=== PATIENT | male | born 1965 | race Caucasian/White ===

== ENCOUNTER 2016-08-20 21:32 | Emergency (ER) | payer MEDICAID, OTHER ==
[~2016-08-20] VITALS: Ht 162.6 cm; Wt 71.0 kg
[2016-08-20 21:42] VITALS: Ht 162.6 cm; Wt 71.0 kg
[2016-08-20] MEDS ORDERED: DIPHTH/TET/ACEL PERTUSS (ADULT) 0.5 ML VIAL IM* ONE (22:30)
--- NOTE | 2016-08-20 22:35 | ERD ---
ER Documentation Chief Complaint Date/Time DATE: 08/20/16 TIME: 22:31 Chief Complaint Pt with L hand lac after cut by hand saw. HPI 51-year-old male was sent here in emergency department for complaints of left third finger pain and laceration wound accidentally being cut by of wood saw. Complaining of pain on affected area, throbbing pain, 8/10 scale, is worse upon touching the area. Patient denies any limitation of movement of the joint. Patient did not take any medications to help with symptoms. ROS All systems reviewed and are negative except as per history of present illness. Medications Home Meds Reported Medications [none] Unknown Strength No Conflict Check 08/20/16 Allergies Allergies: Coded Allergies: No Known Allergy (Unverified , 08/20/16) PMhx/Soc Hx Cardiac Disorders: Yes (htn) Hx Alcohol Use: Yes (occassional) Hx Substance Use: No Hx Tobacco Use: No Smoking Status: Never smoker FmHx Family History: No coronary disease, No diabetes, No other Physical Exam Vitals Vital Signs Date Time Temp Pulse Resp B/P Pulse Ox O2 Delivery O2 Flow Rate FiO2 08/20/16 21:42 97.9 67 16 130/75 99 Physical Exam GENERAL: The patient is well developed and appropriate for usual state of health, in no apparent distress. CHEST: Clear to auscultation bilaterally. There are no rales, wheezes or rhonchi. HEART: Regular rate and rhythm. No murmurs, clicks, rubs or gallops. No S3 or S4. ABDOMEN: Soft, nontender and nondistended. Good bowel sounds. No rebound or guarding. No gross peritonitis. No gross organomegaly or masses. No Sinclair sign or McBurney point tenderness. BACK: No midline or flank tenderness. EXTREMITIES: Equal pulses bilaterally. There is no peripheral clubbing, cyanosis or edema. No focal swelling or erythema. Full range of motion. Grossly neurovascularly intact. NEURO: Alert and oriented. Cranial nerves 2-12 intact. Motor strength in all 4 extremities with 5/5 strength. Sensation grossly intact. Normal speech and gait. SKIN: Noted avulsion laceration wound 2.5 cm on the palmar aspect of the left third finger. Extends up to the dermal layer. There is no apparent rash or petechia. The skin is warm and dry. HEMATOLOGIC AND LYMPHATIC: There is no evidence of excessive bruising or lymphedema. No gross cervical, axillary, or inguinal lymphadenopathy. Results 24 hrs Current Medications Medications (Trade) Dose Ordered Sig/Unruly Route PRN Reason Start Time Stop Time Status Last Admin Dose Admin Diphtheria/ Tetanus/Acell Pertussis (Adacel) 0.5 ml ONCE ONCE IM* 08/20/16 22:30 08/20/16 22:31 DC 08/20/16 22:46 Tdap was given to prevent tetanus. Patient tolerated medication well. PROCEDURE: XR Left middle finger CLINICAL INDICATION: Injury TECHNIQUE: AP, oblique, and lateral radiographs were submitted. COMPARISON: None FINDINGS: Osseous structures: appear well mineralized and intact with no fracture or destructive process identified. Joint spaces: are well maintained, with no significant spurring, erosion or joint effusion evident. Soft tissues: There is soft tissue irregularity and swelling lateral to the distal phalanx of the left middle finger. IMPRESSION: 1. Soft tissue irregularity and swelling lateral to the distal phalanx of the left middle finger. 2. No fracture or dislocation is evident. Physician Paris Date Time Electronically viewed and signed by Physician Paris on 08/20/2016 23:21 RH/ CC: GEORGE DENNEY LAUNDERETTE ATTENDANT Procedures/MDM Procedure note: After patient's verbal consent, the area was cleaned with diluted Betadine, after cleaning the wound, 5 Steri-Strips was applied top of the wound to try to approximate the avulsion laceration wound. Patient tolerated procedure well. A dry dressing was applied afterwards, and a finger metal splint was applied afterwards. Medical Decision Making: Patient's pain is most likely consistent with a laceration on the palmar aspect of the left third finger, avulsion laceration, because of the avulsion of the skin, this was not sutured, a Steri-Strip was applied on top of it to help try to approximate the area. There is no suspicion for neurovascular compromise. Patient has intact sensation and circulation of the affected extremity. There is low suspicion for septic arthritis. Patient does not have any fever. Radiology exams of the affected area does not show any fracture or dislocation. Disposition: Home. Patient is given prescription for ibuprofen for pain, Phoenix for severe pain, Keflex to prevent infection. Patient was advised to elevate the affected area and apply ice on affected area. Patient was advised that if symptoms are worse, numbness, tingling, high fever, unable to move joint, worsening symptoms, to return to emergency department immediately. Otherwise, patient is advised to follow up with the primary care doctor in 5-7 days for reevaluation of symptoms. Departure Diagnosis: Primary Impression: Avulsion of skin of finger Encounter type: initial encounter Qualified Code: S61.209A - Avulsion of skin of finger, initial encounter Condition: Stable Patient Instructions: Skin Avulsion Additional Instructions: Patient is given prescription for ibuprofen for pain, Phoenix for severe pain, Keflex to prevent infection. Patient was advised to elevate the affected area and apply ice on affected area. Patient was advised that if symptoms are worse , numbness, tingling, high fever, unable to move joint, worsening symptoms, to return to emergency department immediately. Otherwise, patient is advised to follow up with the primary care doctor in 5-7 days for reevaluation of symptoms. GEORGE DENNEY NP Aug 20, 2016 22:35
--- NOTE | 2016-08-20 23:21 | RADRPT ---
PROCEDURE: XR Left middle finger CLINICAL INDICATION: Injury TECHNIQUE: AP, oblique, and lateral radiographs were submitted. COMPARISON: None FINDINGS: Osseous structures: appear well mineralized and intact with no fracture or destructive process iden tified. Joint spaces: are well maintained, with no significant spurring, erosion or joint effusion evident. Soft tissues: There is soft tissue irregularity and swelling lateral to the distal phalanx of the le ft middle finger. IMPRESSION: 1. Soft tissue irregularity and swelling lateral to the distal phalanx of the left middle finger. 2. No fracture or dislocation is evident. Physician Paris Date Time Electronically viewed and signed by Physician Paris on 08/20/2016 23:21 /
[2016-08-20] MEDS ORDERED: HYDR-906 PO (23:40)
[2016-08-20] MEDS ORDERED: CEPH-443 PO (23:40)
[2016-08-20] MEDS ORDERED: IBUP-1542 PO (23:40)
== END 2016-08-21 00:05 | disposition home or self-care (01) ==
LOC: FTE 21:32
DX: S61.203A Unspecified open wound of left middle finger without damage to nail, initial encounter (principal); I10 Essential (primary) hypertension; W27.0XXA Contact with workbench tool, initial encounter; Y92.9 Unspecified place or not applicable; Z23 Encounter for immunization
CPT/HCPCS: 29130; 73140; 90471; 90715; Z7502